=== PATIENT | male | born 1980 | race Caucasian/White ===

== ENCOUNTER 2016-09-06 09:45 | Emergency (ER) | payer OTHER ==
[2016-09-06] MEDS ORDERED: HYDROMORPHONE 1 MG/ML SYRINGE ONE ×2 (09:59→10:32)
[2016-09-06] MEDS ORDERED: HYDROMORPHONE 1 MG/ML SYRINGE IV ONE ×2 (09:59→10:31)
[2016-09-06] MEDS ORDERED: CYCLOBENZAPRINE 10 MG TAB PO ONE (10:06)
[2016-09-06] MEDS ORDERED: LORAZEPAM 2 MG/ML SOL IV ONE (10:07)
[2016-09-06] MEDS ORDERED: LORAZEPAM 2 MG/ML SOL ONE (10:12)
[2016-09-06] MEDS ORDERED: SODIUM CHLORIDE 0.9% 1000ML 1,000 ML IV SCH (10:15)
[2016-09-06 10:28] LABS: BASOPHILS % (AUTO) 1 % (0-3); EOSINOPHILS % (AUTO) 0 % (0-9); HEMATOCRIT 51 % (39-53); MEAN CORPUSCULAR HGB CONC 34.4 gm/dl (32.0-36.0); MONOCYTES % (AUTO) 6.5 % (0-12); NEUTROPHILS % (AUTO) 71.2 % (37-80)
[2016-09-06 10:32] LABS: MEAN CORPUSCULAR VOLUME 81 fL (80-100)
[2016-09-06 10:46] LABS: ALBUMIN 4.2 gm/dl (3.4-5.0); CALCIUM 9.3 mg/dl (8.5-10.1); MAGNESIUM 1.7 mg/dl (1.8-2.4); POTASSIUM 3.9 mMol/L (3.5-5.1)
[2016-09-06 11:19] VITALS: RESP 20; TEMP 98.2
[2016-09-06 11:35] LABS: APPEARANCE,URINE Clear; BILIRUBIN,URINE NEGATIVE (NEGATIVE); COLOR,URINE Yellow; GLUCOSE, URINE (UA) NEGATIVE (NEGATIVE); KETONES,URINE NEGATIVE (NEGATIVE); LEUKOCYTE ESTERASE ,URINE NEGATIVE (NEGATIVE); NITRATE,URINE NEGATIVE (NEGATIVE); OCCULT BLOOD,URINE 2+ (NEG-TRACE); UROBILINOGEN,URINE 0.2 (0.2-1.0 EU)
[2016-09-06 11:45] LABS: RBC,URINE 50-75 (0-3AV/HPF); WBC,URINE 0-2 (0-5AV/HPF)
[2016-09-06 12:33] VITALS: BP 128/72; PULSE 63; O2SAT 100
== END 2016-09-06 12:25 | disposition home or self-care (01) | DRG 694 ==
LOC: ED 09:45
DX: N13.2 Hydronephrosis with renal and ureteral calculous obstruction (principal)
CPT/HCPCS: 36415; 72070; 72120; 74177; 80053; 81001; 83735; 85025; 96365; 96374; 96375; 99284; 99285; J2060; Q9967; J1170